=== PATIENT | female | born 1995 | race Caucasian/White ===

== ENCOUNTER 2017-03-14 18:57 | Emergency (ER) | payer BC ==
[~2017-03-14] VITALS: Ht 152.4 cm; Wt 81.5 kg
[2017-03-14 19:21] VITALS: Ht 152.4 cm; Wt 81.5 kg
[2017-03-14] MEDS ORDERED: IBUPROFEN 600 MG TAB PO ONE (20:30)
--- NOTE | 2017-03-14 20:57 | ERD ---
ER Documentation Chief Complaint Date/Time DATE: 03/14/17 TIME: 20:55 Chief Complaint left shoulder pain secondary to injury from toya lift at work today HPI 21-year-old female presents to emergency department for complaints of left shoulder pain after a metal object fell on the left shoulder, more in the clavicle at work today. Patient describes the pain as throbbing pain,6/10 scale , and touching the area. Patient is able to move the left shoulder without any restriction. Patient denies any numbness or tingling ROS All systems reviewed and are negative except as per history of present illness. Medications Home Meds Reported Medications [none] Unknown Strength No Conflict Check 03/14/17 Allergies Allergies: Coded Allergies: No Known Allergies (Verified Allergy, Mild, 08/06/10) PMhx/Soc Medical and Surgical Hx: pt denies Medical Hx, pt denies Surgical Hx History of Surgery: No Anesthesia Reaction: No Hx Neurological Disorder: No Hx Respiratory Disorders: No Hx Cardiac Disorders: No Hx Psychiatric Problems: No Hx Miscellaneous Medical Probl: No Hx Alcohol Use: No Hx Substance Use: No Hx Tobacco Use: No Smoking Status: Never smoker FmHx Family History: No coronary disease, No diabetes, No other Physical Exam Vitals Vital Signs Date Time Temp Pulse Resp B/P Pulse Ox O2 Delivery O2 Flow Rate FiO2 03/14/17 19:21 98.1 91 18 134/61 98 Physical Exam GENERAL: The patient is well developed and appropriate for usual state of health, in no apparent distress. CHEST: Clear to auscultation bilaterally. There are no rales, wheezes or rhonchi. HEART: Regular rate and rhythm. No murmurs, clicks, rubs or gallops. No S3 or S4. ABDOMEN: Soft, nontender and nondistended. Good bowel sounds. No rebound or guarding. No gross peritonitis. No gross organomegaly or masses. No Barajas sign or McBurney point tenderness. BACK: No midline or flank tenderness. EXTREMITIES: Redness on palpation of the left clavicle area, no deformity noted , no ecchymosis noted. Equal pulses bilaterally. There is no peripheral clubbing, cyanosis or edema. No focal swelling or erythema. Full range of motion. Grossly neurovascularly intact. NEURO: Alert and oriented. Cranial nerves 2-12 intact. Motor strength in all 4 extremities with 5/5 strength. Sensation grossly intact. Normal speech and gait. SKIN: There is no apparent rash or petechia. The skin is warm and dry. HEMATOLOGIC AND LYMPHATIC: There is no evidence of excessive bruising or lymphedema. No gross cervical, axillary, or inguinal lymphadenopathy. Results 24 hrs Current Medications Medications (Trade) Dose Ordered Sig/Mauricio Route PRN Reason Start Time Stop Time Status Last Admin Dose Admin Ibuprofen (Motrin) 600 mg ONCE ONCE PO 03/14/17 20:30 03/14/17 20:31 DC 03/14/17 20:56 Patient was given medication for pain here in emergency department, after treatment, patient verbalized feeling much better. Patient's pain is improved. PROCEDURE: XR Left clavicle CLINICAL INDICATION: Pain status post injury TECHNIQUE: Two radiographs were submitted. COMPARISON: None FINDINGS: Osseous structures: appear well mineralized and intact with no fracture or destructive process identified. Joint spaces: The AC joint appears normal. Soft tissues: appear unremarkable. IMPRESSION: Unremarkable left clavicle. Physician Talia Date Time Electronically viewed and signed by Physician Talia on 03/14/2017 21:07 RH/ CC: TERRI LLANOS SALOONKEEPER Procedures/MDM Medical Decision Making: Patient's pain is most likely consistent with a shoulder contusion. There is no suspicion for neurovascular compromise. Patient has intact sensation and circulation of the affected extremity. There is low suspicion for septic arthritis. Patient does not have any fever. Radiology exams of the affected area does not show any fracture or dislocation. Disposition: Home. Patient is given prescription for ibuprofen for pain, tramadol for severe pain. Patient was advised to apply ice on affected area. Patient was advised that if symptoms are worse, numbness, tingling, high fever, unable to move joint, worsening symptoms, to return to emergency department immediately. Otherwise, patient is advised to follow up with the primary care doctor in 5-7 days for reevaluation of symptoms. Disclaimer: Inadvertent spelling and grammatical errors are likely due to EHR/ dictation software use and do not reflect on the overall quality of patient care. Also, please note that the electronic time recorded on this note does not necessarily reflect the actual time of the patient encounter. Departure Diagnosis: Primary Impression: Shoulder contusion Encounter type: initial encounter Laterality: left Qualified Code: S40.012A - Contusion of left shoulder, initial encounter Condition: Stable Patient Instructions: Shoulder Contusion Additional Instructions: Patient is given prescription for ibuprofen for pain, tramadol for severe pain. Patient was advised to apply ice on affected area. Patient was advised that if symptoms are worse, numbness, tingling, high fever, unable to move joint , worsening symptoms, to return to emergency department immediately. Otherwise, patient is advised to follow up with the primary care doctor in 5-7 days for reevaluation of symptoms. TERRI LLANOS NP Mar 14, 2017 20:57
--- NOTE | 2017-03-14 21:07 | RADRPT ---
PROCEDURE: XR Left clavicle CLINICAL INDICATION: Pain status post injury TECHNIQUE: Two radiographs were submitted. COMPARISON: None FINDINGS: Osseous structures: appear well mineralized and intact with no fracture or destructive process iden tified. Joint spaces: The AC joint appears normal. Soft tissues: appear unremarkable. IMPRESSION: Unremarkable left clavicle. Physician Talia Date Time Electronically viewed and signed by Devon Avalos Physician on 03/14/2017 21:07 /
[2017-03-14] MEDS ORDERED: TRAM50TA2 PO (21:25)
[2017-03-14] MEDS ORDERED: IBUP-1542 PO (21:25)
[2017-03-14 22:14] VITALS: BP 123/67; PULSE 77; RESP 18; TEMP 98.3
== END 2017-03-14 22:14 | disposition home or self-care (01) ==
LOC: FTE 18:57
DX: S40.012A Contusion of left shoulder, initial encounter (principal); W20.8XXA Other cause of strike by thrown, projected or falling object, initial encounter; Y92.9 Unspecified place or not applicable
CPT/HCPCS: 73000; 99283; Z7610